=== PATIENT | male | born 1955 | race African-American/Black ===

== ENCOUNTER 2017-01-15 05:57 | Emergency (ER) | payer MEDICARE, OTHER ==
[~2017-01-15 05:57] MED LIST: ACETAMINOPHEN PO; ALBUTEROL17 GM INH; ALPHAGAN P5 ML OU; ARICEPT5 MG PO; ARIPIPRAZOLE15 MG PO; ARTAIN PO; ARTIFICIAL TEAR15 ML OU; ASPIRIN EC81 M1 PO; ASPIRIN81 M2 PO; AUGMENTIN875 MG PO; BENADRYL PO; BUMETANIDE1 MG PO; CARDURA4 M1 PO; COGENTIN PO; COGENTIN2 MG PO; COREG3.125 MG PO; COREG6.25 MG PO; DEPAKOTE ER PO; DEPAKOTE PO; DIVALPROEX SOD500 MG PO; DOK100 MG PO; DOXEPIN HCL50 MG PO; FLOMAX0.4 M1 PO; FLONASE 0.05% N16 G1; FLONASE16 GM; FUROSEMIDE40 MG PO; HYDROXYZINE HCL10 MG PO; INVEGA3 MG PO; K-DUR20 ME2 PO; LASIX PO; LISINOPRIL-HCTZ1 T19 PO; LISINOPRIL10 MG PO; LITHIUM PO; MAALOX MAXIMUM355 ML PO; MILK OF MAGNESIA PO; NICODERM C1 PATCH .3 TD; NICOTINE TRANSD21 MG EXT; OLANZAPINE20 MG PO; OMNIPRED10 ML OS; OXCARBAZEPINE150 MG PO; PAIN RELIEF500 M1 PO; PATIENT'S PHARMACY; PREDNISONE PO; PRILOSEC20 MG PO; PRINIVIL5 MG PO; PROMETHAZINE D118 ML PO; PROTONIX PO; QUETIAPINE FUM100 MG PO; RISPERDAL CONSTA PO; RISPERDAL2 MG PO; RISPERIDONE PO; SEROQUEL PO; SEROQUEL400 MG PO; SEROQUEL50 M1 PO; SEROQUEL50 MG PO; SOMINEX PO; TYLENOL EXTRA500 M1 PO; VICODIN 5/500 T1 TAB PO; VOLTAREN75 MG PO; XARELTO15 MG PO; ZESTRIL5 MG PO
[2017-01-15 07:16] LABS: BASOPHIL% 0.5 % (0-2.5); EOSINOPHIL# 0.2 X10e3 (0-0.7); HEMATOCRIT 39.7 % (38.0-50.0); HEMOGLOBIN 13.1 gm/dL (13.0-16.0); LYMPHOCYTE# 2.2 X10e3 (1.0-3.5); LYMPHOCYTE% 33.9 % (17.0-45.0); MEAN CELL VOLUME 101.1 FL (83-96); MEAN CORPUSCULAR HEMOGLOBIN 33.4 PG (28-34); MEAN PLATELET VOLUME 9.3 FL (6.5-11.5); MONOCYTE# 0.7 X10e3 (0-1.0); MONOCYTE% 11.6 % (3.0-12.0); NEUTROPHIL# 3.2 X10e3 (1.5-7.1); PLATELET COUNT 142 X10e3 (140-420); RED BLOOD COUNT 3.93 X10e (3.90-5.60); RED CELL DISTRIBUTION WIDTH 16.1 % (11.0-15.5); WHITE BLOOD COUNT 6.4 X10e3 (4.0-10.5)
[2017-01-15 07:17] LABS: DIFF IND NO
[2017-01-15 07:20] LABS: URINE SOURCE CLEAN CATCH
[2017-01-15 07:31] LABS: URINE APPEARANCE CLEAR; URINE BILIRUBIN NEG (NEG); URINE BLOOD NEG (NEG); URINE COLOR YELLOW; URINE GLUCOSE NEG (NEG); URINE KETONE NEG (NEG); URINE LEUKOCYTE ESTERASE NEG (NEG); URINE NITRATE NEG (NEG); URINE PH 5.5 (5-8); URINE PROTEIN NEG (NEG); URINE SPECIFIC GRAVITY 1.005 (1.003-1.035)
[2017-01-15 07:38] LABS: CULTURE INDICATED? NO
[2017-01-15 07:49] LABS: ALBUMIN SERUM 3.8 g/dL (3.5-5.0); ALKALINE PHOSPHATASE 49 U/L (32-92); ALT (SGPT) 14 U/L (10-40); AST (SGOT) 32 U/L (10-42); BILIRUBIN, DIRECT 0.3 mg/dL (0.0-0.2); BILIRUBIN,INDIRECT 0.7 mg/dL (0.0-0.9); BLOOD UREA NITROGEN 15 mg/dL (9-23); BUN/CREATININE RATIO 16.66; CALCIUM SERUM 8.7 mg/dL (8.4-10.2); CARBON DIOXIDE 22 mmol/L (22-31); CHLORIDE 102 mmol/L (100-111); CREATININE SERUM 0.9 mg/dL (0.6-1.4); DEPAKENE (VALPROIC ACID) 100 ug/mL (50-125); GLUCOSE FASTING 92 mg/dL (70-110); POTASSIUM 4.3 mmol/L (3.5-5.1); PROTEIN TOTAL SERUM 6.8 g/dL (6.0-8.3); SALICYLATE <4.0 mg/dL; SODIUM 136 mmol/L (135-145)
[2017-01-15 07:52] LABS: ACETAMINOPHEN <10 ug/mL; ALCOHOL BLOOD <5 mg/dL (0)
[2017-01-15 08:31] LABS: AMPHETAMINE NEG (NEG); BARBITURATES NEG (NEG); BENZODIAZEPINES NEG (NEG); COCAINE NEG (NEG); MARIJUANA NEG (NEG); OPIATES NEG (NEG); TRICYCLIC ANTIDEPRESSANTS NEG (NEG); U METHADONE NEG (NEG)
== END 2017-01-15 09:18 | disposition home or self-care (01) ==
LOC: CED 05:57
PROVIDERS: Physician Assistant
DX: Z02.89 Encounter for other administrative examinations (principal); F20.0 Paranoid schizophrenia; I11.0 Hypertensive heart disease with heart failure; J44.9 Chronic obstructive pulmonary disease, unspecified; N40.0 Benign prostatic hyperplasia without lower urinary tract symptoms; F17.200 Nicotine dependence, unspecified, uncomplicated; Z79.899 Other long term (current) drug therapy
CPT/HCPCS: 36415; 80048; 80076; 80164; 80307; 81003; 85025; 99283; G0480